=== PATIENT | female | born 1955 | race Caucasian/White ===

== ENCOUNTER → 2017-04-19 15:58 | Outpatient (CLI) | payer OTHER, SELFPAY | PROVIDERS: Family Provider Family Medicine; PCP Family Medicine; Visit Provider Otolaryngology Otolaryngology/Facial Plastic Surgery | DX: J32.9 Chronic sinusitis, unspecified (principal) | CPT/HCPCS: 87070; 87205 ==

== ENCOUNTER → 2020-06-22 09:29 | Outpatient (CLI) | payer OTHER, SELFPAY ==
[2020-06-15 11:22] VITALS: BMI 36.6
--- NOTE | 2020-06-22 09:34 | ECHOCS_ITS ---
Version 2 Reason For Study: Edema Procedure This was a 2D Doppler, Color Flow transthoracic echocardiogram. Contrast injection was performed. Exam performed in department. Left Ventricle Normal LV size. Left ventricular systolic function is normal. The estimated ejection fraction is 60 %. No regional wall motion abnormalities noted. Right Ventricle Normal RV size. Normal systolic function. Atria Normal left atrium. Normal right atrium. Mitral Valve Normal mitral valve. Tricuspid Valve Normal tricuspid valve. Aortic Valve The aortic valve is not well visualized. Pulmonic Valve The pulmonic valve is not well visualized. Great Vessels Normal aortic root. The pulmonary artery is normal size. Normal inferior vena cava. Pericardium/Pleural No pericardial effusion. Medication Performed a rapid injection of agitated mix of 9 cc saline and 1cc air to assess for atrial septal defect. Diluted definity 3ml given slow IV push to enhance endocardial definition. MMode/2D Measurements & Calculations LVIDd: 4.5 cm IVSd: 1.1 cm Ao root diam: 2.9 cm LVIDs: 2.3 cm LVPWd: 1.0 cm RVDd: 3.5 cm FS: 48.2 % LAV(MOD-bp): 48.6 ml LVAd ap4: 28.9 cm2 SV(MOD-sp4): 47.6 ml LAV(MOD-bp) Indexed: 23.4 ml/m2 LVLd ap4: 7.4 cm LAV(MOD-sp2): 44.5 ml EDV(MOD-sp4): 86.2 ml LAV(MOD-sp4): 48.4 ml EDV(sp4-el): 95.2 ml LVAs ap4: 17.0 cm2 LVLs ap4: 6.3 cm ESV(MOD-sp4): 38.6 ml ESV(sp4-el): 38.8 ml EF(MOD-sp4): 55.2 % EF(sp4-el): 59.2 % SV(sp4-el): 56.4 ml LA A4 area: 18.0 cm2 LA dimension(2D): 3.9 cm RA A4 area: 12.4 cm2 Doppler Measurements & Calculations MV E max jose: 55.5 cm/sec Lat Peak E' Jose: 10.4 cm/sec Med Peak E' Jose: 6.4 cm/sec MV A max jose: 61.1 cm/sec E/E' lat: 5.3 E/E' med: 8.7 MV E/A: 0.91 Ao V2 max: 148.8 cm/sec LV V1 max: 94.7 cm/sec PA V2 max: 89.6 cm/sec Ao max P.9 mmHg LV V1 max P.6 mmHg Ao V2 mean: 102.2 cm/sec Ao mean P.6 mmHg Ao V2 VTI: 29.5 cm TR max jose: 204.1 cm/sec TR max P.7 mmHg ECHO/Echo Complete W/ Contrast Interpretation Summary Normal LV size. Left ventricular systolic function is normal. The estimated ejection fraction is 60 %. Contrast injection was performed. Structurally normal valves. Ordering Physician: Tyrone Murphy Referring Physician: Tyrone Murphy Performed By: Sheridan Lewis, NICKOLAS, RVT
== END ==
PROVIDERS: PCP Family Medicine; Referring Provider Family Medicine; Visit Provider Family Medicine
DX: I10 Essential (primary) hypertension (principal); R60.0 Localized edema
CPT/HCPCS: 93306; Q9957; A4216; C8929

== ENCOUNTER → 2022-01-29 | Outpatient (CLI) | payer OTHER, SELFPAY | END | disposition home or self-care (01) | LOC: LABSPEC 15:14 | PROVIDERS: PCP Family Medicine; Visit Provider Otolaryngology Otolaryngology/Facial Plastic Surgery | DX: J32.8 Other chronic sinusitis (principal) | CPT/HCPCS: 87070; 87205 ==